=== PATIENT | female | born 1970 | race Caucasian/White ===

== ENCOUNTER 2019-11-08 10:44 | Emergency (ER) | payer OTHER ==
[~2019-11-08] VITALS: Ht 170.2 cm; Wt 83.0 kg
[2019-11-08 10:51] VITALS: Ht 170.2 cm; Wt 83.0 kg
[2019-11-08 11:51] LABS: BASOPHIL % 1.1 % (0-2); PLATELET COUNT 280 x10^3mcL (130-400); RED CELL DISTRIBUTION WIDTH 14.5 % (11.5-14.5)
[2019-11-08 12:14] LABS: CARBON DIOXIDE 22.9 mmol/L (21-32); CREATININE SERUM 1.1 mg/dL (0.6-1.0); POTASSIUM SERUM 3.7 mmol/L (3.5-5.1)
[2019-11-08 12:15] LABS: ALBUMIN 3.9 g/dL (3.4-5.0); BILIRUBIN TOTAL 0.49 mg/dL (0.20-1.00); CALCIUM 9.2 mg/dL (8.5-10.1)
[2019-11-08 14:08] VITALS: BP 114/66
== END 2019-11-08 14:14 | disposition home or self-care (01) ==
LOC: ED 10:44
PROVIDERS: Emergency Medicine
DX: K21.9 Gastro-esophageal reflux disease without esophagitis (principal); I10 Essential (primary) hypertension; E11.9 Type 2 diabetes mellitus without complications; M79.7 Fibromyalgia; M32.9 Systemic lupus erythematosus, unspecified; Z88.0 Allergy status to penicillin; Z88.1 Allergy status to other antibiotic agents; Z88.8 Allergy status to other drugs, medicaments and biological substances; Z86.73 Personal history of transient ischemic attack (TIA), and cerebral infarction without residual deficits
CPT/HCPCS: C9113; J2405; J7030; Q0092